=== PATIENT | male | born 1980 | race Caucasian/White ===

== ENCOUNTER 2025-01-07 12:28 | Emergency (ER) | payer OTHER, SELFPAY ==
[2025-01-07 12:29] VITALS: BMI 28.0
[2025-01-07 12:30] VITALS: BP 151/97; PULSE 115; RESP 19; TEMP 36.8; O2SAT 97
--- NOTE | 2025-01-07 12:38 | XR_ITS ---
Examination: Testicular sonography complete Technique: Grayscale sonographic images testes, assessment arterial inflow venous outflow Doppler spectral analysis carful analysis Date and time: January 07, 2025, 1255 hrs. Indications: Testicular swelling and palpable lump noticed beginning one week ago. Findings: Right testis 4.0 cm epididymis 13 mm Arterial flow testicle. Mild hydrocele Left testis 4.0 cm epididymis 11 mm Arterial flow testicle. Mild hydrocele Impression: No testicular torsion or testicular mass. Right epididymitis
--- NOTE | 2025-01-07 12:39 | EDNOTE_ITS ---
<Statement entered by Sveta Mustafa MD - 01/07/25 15:13> As co-signing physician, I was present and available for consult prn. I concur with the plan and care as documented by the midlevel provider. ED General RME/HPI General Chief complaint: Urogenital-Male Stated complaint: TESTICULAR SWELLING Time Seen by Provider: 01/07/25 12:37 Arrival date/time: 01/07/25 12:28 CC: Left testicular pain HPI ongoing for the past week with progressive increase in severity no painful urination or bloody urination. Patient denies nausea vomiting constipation or bloody urination. Review of Systems Review of Systems Narrative Review of Systems: GEN: No fever, no chills, no weight loss EYES: No discharge, no visual changes, no pain HEENT: No ear pain, no congestion, no sore throat PULM: No shortness of breath, no cough, no congestion CV: No chest pain, no dyspnea on exertion, no palpitations GI: No nausea, no vomiting, no diarrhea, no pain, no constipation : No frequency, no urgency, no dysuria, positive testicular pain MUSC/SKEL: No joint pain, no back pain SKIN: No rash PSYCH: No hallucinations, no depression HEME/LYMPH: No easy bleeding or bruising tendencies NEURO: No weakness, no headache Past Medical History Past Medical History CARDIAC: Positive Hypertension; Negative Congestive Heart Failure RESPIRATORY: Negative Chronic Obstructive Pulmonary Disease (COPD) GENITOURINARY: Negative Renal Disease ENDOCRINE: Negative Diabetes Mellitus Type 1 or Diabetes Mellitus Type 2 Social History SMOKING STATUS: Current some day smoker ED Exam Narrative Physical exam: [General: Obese not in cot no acute distress Head normocephalic HEENT: Within acceptable limits Neck is supple nontender Chest equal chest rise nontender to palpation Respiratory: Clear to auscultation no wheezes crackles or rubs CV: Rate rhythm is regular no murmurs rubs or clicks Abdomen is distended secondary to body habitus soft nontender no masses positive bowel sounds all 4 quadrants : Penis: Noncircumcised no lesions bleeding meatus appreciated no discharge or bleeding. Scrotum nonedematous nonerythematous enlarged left testicle poor definition tender with manipulation. Not high riding. Right testicle is unremarkable distended nontender. Back: No CVA tenderness no spinous process tenderness from cervical spine thoracic and lumbar spine Skin: Intact no petechiae rash induration ulceration or crepitus Extremities: Moving all extremity against resistance cap refill less than 2 seconds neurosensory intact Neuro: Awake alert oriented x3 Glascow coma 15 no focal deficits] Course Quality Measures none Orders Category Date Time Status US scrotum Stat Exams 01/07/25 12:38 Completed 500 mg IM w/Lido* 1% Med 01/07/25 14:05 Ordered cefTRIAXone [Rocephin] 500 mg Lidocaine 1% 20 ml [Xylocaine 1% 20 ML] 1 ml IM X1 Vital Signs Vital signs: Vital Signs Temperature 98.2 F 01/07/25 12:30 Pulse Rate 115 H 01/07/25 12:30 Respiratory Rate 19 01/07/25 12:30 Blood Pressure 151/97 H 01/07/25 12:30 Pulse Oximetry (%) 97 01/07/25 12:30 Oxygen Delivery Method Room Air 01/07/25 12:30 Discharge Plan Plan Patient Disposition: Penitentiary/Court/Law Patient condition on transfer: Stable Problem List Clinical Impression: Epididymitis Patient/Caregiver Discharge Instructions Other Activity Instructions:: Patient needs doxycycline 100 mg twice a day for 10 days Education Materials: ED Epididymitis Print Language: Kyrgyz Stand Alone Forms: Work/School Release PA/ORACLE CONSULTANT Supervising Physician PA/ORACLE CONSULTANT Supervising Physician: Speedy Concepcion ENP [facility] Clinical Information Provided by patient and law enforcement Medical Records Reviewed [facility] Meds/Rx Considered, not Ordered None Labs/Rad/Tests considered, not Ordered None Chronic Illness/Social Conditions which may negatively complicate care or outcome(s)-explain: None or not applicable EKG EKG not done Lab Interpretation Labs: none Imaging Provider imaging interpretation(s): Ultrasound shows epididymitis Medication Administration(s) none Diagnosis Differential diagnosis: Epididymitis hydrocele torsion Most likely dx, and/or detailed dx discussion: Epididymitis Dispositon Disposition: Incarceration/CPS
[2025-01-07 14:36] VITALS: BP 149/96; PULSE 78; RESP 18; TEMP 36.6; O2SAT 96
[2025-01-07] MEDS: cefTRIAXone 500 MG, LIDOCAINE 1% 20 ML 1 ML IM (16:01)
[2025-01-07 16:04] VITALS: BP 129/102; PULSE 76; RESP 18; TEMP 36.9; O2SAT 98
== END 2025-01-07 16:04 ==
LOC: SERX 15:57
PROVIDERS: Emergency Provider Emergency Medicine
DX: N45.1 Epididymitis (principal)
CPT/HCPCS: 76870; 96372; 99283; J0696; J3490